=== PATIENT | male | born 1950 | race Caucasian/White ===

== ENCOUNTER → 2017-08-07 | Outpatient (CLI) | payer BC ==
[~2017-08-07] MED LIST: ASCA500 PO; ASPCH81X PO; MULT-506 PO; WARF2TAB PO
== END | disposition home or self-care (01) ==
LOC: C.RDSM 11:42
PROVIDERS: ATTEND Physical Medicine & Rehabilitation Sports Medicine
DX: Z96.698 Presence of other orthopedic joint implants (principal)